=== PATIENT | female | born 1970 | race Caucasian/White ===

== ENCOUNTER → 2017-01-02 | Outpatient (CLI) | payer OTHER ==
[2017-01-02 14:27] LABS: ALT 48 U/L (9-52); AST 25 U/L (14-36); Alkaline Phosphatase 78 U/L (38-126); Anion Gap 13 mmol/L; Blood Urea Nitrogen 11 mg/dL (7-17); Calcium 10.7 mg/dL (8.4-10.2); Carbon Dioxide 30 mmol/L (22-30); Chloride 100 mmol/L (98-107); Glucose 87 mg/dL (74-99); Non-African American GFR(MDRD) >60 (>60 ml/min/1.73 sqM); Potassium 4.5 mmol/L (3.5-5.1); Sodium 143 mmol/L (137-145); Total Bilirubin 0.6 mg/dL (0.2-1.3); Total Protein 8.2 g/dL (6.3-8.2)
== END | disposition home or self-care (01) ==
LOC: LABWHC1 13:47
PROVIDERS: ATTEND Urology
DX: N20.0 Calculus of kidney (principal)
CPT/HCPCS: 36415; 80053

== ENCOUNTER → 2017-06-25 | Outpatient (CLI) | payer OTHER ==
--- NOTE | 2017-06-26 12:57 | MM ---
Reason for exam: screening (asymptomatic). Last mammogram was performed 1 year and 9 months ago. History: Family history of breast cancer in maternal aunt at age 50 and breast cancer in maternal aunt at age 40. Benign MG pre op needle loc RT of the right breast, August 27, 2014. Benign US right core biopsy of the right breast, January 28, 2008. Physical Findings: A clinical breast exam by your physician is recommended on an annual basis and results should be correlated with mammographic findings. MG Screening Mammo w CAD Bilateral CC and MLO view(s) were taken. Prior study comparison: September 12, 2015, bilateral MG 3d diag mammo w/cad [facility]. There are scattered fibroglandular densities. Previous mammotome biopsy within the right breast. No significant changes when compared with prior studies. ASSESSMENT: Benign, BI-RAD 2 RECOMMENDATION: Routine screening mammogram of both breasts in 1 year.
== END | disposition home or self-care (01) ==
LOC: RADMAMWWP 06:57
PROVIDERS: ATTEND Obstetrics & Gynecology
DX: Z12.31 Encounter for screening mammogram for malignant neoplasm of breast (principal)

== ENCOUNTER → 2018-10-08 | Outpatient (CLI) | payer OTHER ==
--- NOTE | 2018-10-09 12:03 | MM ---
Reason for exam: screening (asymptomatic). Last mammogram was performed 1 year and 3 months ago. History: Family history of breast cancer in maternal aunt at age 50 and breast cancer in maternal aunt at age 40. Benign MG pre op needle loc RT of the right breast, August 27, 2014. Benign US right core biopsy of the right breast, January 28, 2008. Physical Findings: A clinical breast exam by your physician is recommended on an annual basis and results should be correlated with mammographic findings. MG Screening Mammo w CAD Bilateral CC and MLO view(s) were taken. Prior study comparison: June 25, 2017, bilateral MG screening mammo w CAD. September 12, 2015, bilateral MG 3d diag mammo w/cad [facility]. There are scattered fibroglandular densities. There are benign appearing stable bilateral masses. Biopsy marker present on the right. No suspicious abnormality. No significant changes when compared with prior studies. ASSESSMENT: Benign, BI-RAD 2 RECOMMENDATION: Routine screening mammogram of both breasts in 1 year.
== END | disposition home or self-care (01) ==
LOC: RADMAMWWP 08:40
PROVIDERS: ATTEND Obstetrics & Gynecology
DX: Z12.31 Encounter for screening mammogram for malignant neoplasm of breast (principal)
CPT/HCPCS: 77067

== ENCOUNTER 2019-04-10 10:43 | Day surgery (SDC) | payer OTHER ==
[2019-04-07 14:32] VITALS: BMI 35.7
[~2019-04-10 10:43] MED LIST: LACTATED RINGERS 1,000 ML IV SCH; LIDOCAINE 1% 20 ML VIAL (10MG/ML) FOR IV START INTRADERMA PRN
[2019-04-10 10:55] VITALS: RESP 16; TEMP 98.4
[2019-04-10] MEDS ORDERED: PROPOFOL 10 MG/ML 20 ML VIAL IV ONE (12:43)
[2019-04-10] MEDS ORDERED: LIDOCAINE 1% INJ 10MG/ML (20 ML MDV) ONE (12:43)
--- NOTE | 2019-04-10 12:47 | P.GSHP ---
History of Present Illness H&P Date: 04/10/19 Chief Complaint: Colon cancer screening Patient here today for screening colonoscopy. She has not had a colonoscopy previously. No bowel complaints. No family history of colon cancer. Past Medical History Past Medical History: Cancer, Hyperlipidemia, Hypertension Additional Past Medical History / Comment(s): kidney stones, squamous cell skin cancer History of Any Multi-Drug Resistant Organisms: None Reported Past Surgical History: Breast Surgery, Section, Tubal Ligation, Uterine Ablation Additional Past Surgical History / Comment(s): UTERINE ABLATION WITH NOVASURE, biopsy of right breast X2 benign, C/S x2 Past Anesthesia/Blood Transfusion Reactions: Family History of Problems w/ Anesthesia Additional Past Anesthesia/Blood Transfusion Reaction / Comment(s): SON GET N & V Smoking Status: Former smoker - Past Family History Father Family Medical History: Cancer Additional Family Medical History / Comment(s): LUNG Medications and Allergies Home Medications Medication Instructions Recorded Confirmed Type Lisinopril [Zestril] 5 mg PO DAILY 11/09/16 04/10/19 History Atorvastatin [Lipitor] 10 mg PO DAILY 04/07/19 04/10/19 History Phentermine HCl [Adipex-P] 37.5 mg PO DAILY 04/07/19 04/10/19 History Allergies Allergy/AdvReac Type Severity Reaction Status Date / Time adhesive tape Allergy Rash/Hives Verified 04/10/19 10:51 Surgical - Exam Vital Signs Temp Pulse Resp BP Pulse Ox 98.4 F 106 H 16 142/77 98 04/10/19 10:54 04/10/19 10:54 04/10/19 10:54 04/10/19 10:54 04/10/19 10:54 Physical exam: General: Well-developed, well-nourished HEENT: Normocephalic, sclerae nonicteric Abdomen: Nontender, nondistended Extremities: No edema Neuro: Alert and oriented Assessment and Plan (1) Colon cancer screening Narrative/Plan: Will proceed with colonoscopy Current Visit: Yes Status: Acute Code(s): Z12.11 - ENCOUNTER FOR SCREENING FOR MALIGNANT NEOPLASM OF COLON SNOMED Code(s): 610699905
--- NOTE | 2019-04-10 13:11 | P.PCN ---
Date of Procedure: 04/10/19 Procedure(s) Performed: PREOPERATIVE DIAGNOSIS: Colon cancer screening POSTOPERATIVE DIAGNOSIS: Ascending colon polyp, diverticulosis PROCEDURE: Colonoscopy with snare polypectomy ANESTHESIA: MAC SURGEON: Golden Hood M.D. SPECIMENS: Ascending colon polyp ENDOSCOPIC PROCEDURE: The patient was placed on the endoscopy table in the left decubitus position. The Olympus colonoscope was inserted into the anus and passed under direct visualization to the base of the cecum. The appendiceal orifice was visualized. From that point the scope was slowly withdrawn inspecting all surfaces carefully. There were no neoplastic inflammatory or polypoid lesions throughout the cecum. In the ascending colon a linear sessile polyp measuring approximately 2 cm was removed in a piecemeal fashion. The remainder of the ascending transverse descending sigmoid and rectum appeared normal. There was mild scattered diverticulosis. Digital rectal examination was normal. The patient was taken to the recovery room in stable condition per anesthesia guidelines. RECOMMENDATIONS: Await biopsies results. Recommend follow colonoscopy 1 year to confirm complete resolution of this polypoid lesion
[2019-04-10 13:38] VITALS: BP 117/80; PULSE 76
== END 2019-04-10 13:51 | disposition home or self-care (01) ==
LOC: ORWHC2ENDO 10:43
PROVIDERS: ATTEND Surgery
DX: Z12.11 Encounter for screening for malignant neoplasm of colon (principal); E78.5 Hyperlipidemia, unspecified; I10 Essential (primary) hypertension; Z85.828 Personal history of other malignant neoplasm of skin; Z87.442 Personal history of urinary calculi; Z87.891 Personal history of nicotine dependence; Z80.1 Family history of malignant neoplasm of trachea, bronchus and lung; D12.2 Benign neoplasm of ascending colon; K57.30 Diverticulosis of large intestine without perforation or abscess without bleeding; Z88.8 Allergy status to other drugs, medicaments and biological substances; Z79.899 Other long term (current) drug therapy
CPT/HCPCS: 88305; 45385; J2001; J2704

== ENCOUNTER → 2019-11-24 | Outpatient (CLI) | payer OTHER ==
--- NOTE | 2019-11-26 13:22 | MM ---
Reason for exam: screening (asymptomatic). Last mammogram was performed 1 year and 2 months ago. History: Patient history of other cancer. Family history of breast cancer in maternal aunt at age 50 and breast cancer in maternal aunt at age 40. Benign MG pre op needle loc RT of the right breast, August 27, 2014. Benign US right core biopsy of the right breast, January 28, 2008. Took hormonal contraceptives for 5 years. Physical Findings: A clinical breast exam by your physician is recommended on an annual basis and results should be correlated with mammographic findings. MG Screening Mammo w CAD Bilateral CC and MLO view(s) were taken. Prior study comparison: October 08, 2018, bilateral MG screening mammo w CAD. June 25, 2017, bilateral MG screening mammo w CAD. There are scattered fibroglandular densities. There are benign appearing stable bilateral round oval circumscribed masses. No suspicious abnormality. Right biopsy marker noted. No significant changes when compared with prior studies. ASSESSMENT: Benign, BI-RAD 2 RECOMMENDATION: Routine screening mammogram of both breasts in 1 year.
== END | disposition home or self-care (01) ==
LOC: RADMAMWWP 06:58
PROVIDERS: ATTEND Obstetrics & Gynecology
DX: Z12.31 Encounter for screening mammogram for malignant neoplasm of breast (principal)
CPT/HCPCS: 77067

== ENCOUNTER → 2021-03-17 | Outpatient (CLI) | payer OTHER ==
--- NOTE | 2021-03-20 11:50 | MM ---
Reason for exam: screening (asymptomatic). Last mammogram was performed 1 year and 4 months ago. History: Patient history of other cancer. Family history of breast cancer in maternal aunt at age 50, breast cancer in maternal aunt at age 40, and breast cancer in sister at age 45. Benign MG pre op needle loc RT of the right breast, August 27, 2014. Benign US right core biopsy of the right breast, January 28, 2008. Took hormonal contraceptives for 5 years. Physical Findings: A clinical breast exam by your physician is recommended on an annual basis and results should be correlated with mammographic findings. MG Screening Mammo w CAD Bilateral CC and MLO view(s) were taken. Prior study comparison: November 24, 2019, bilateral MG screening mammo w CAD. October 08, 2018, bilateral MG screening mammo w CAD. There are scattered fibroglandular densities. Previous mammotome biopsy in the right breast at chronic nodularity. There is chronic nodularity bilaterally. There is no discrete abnormality. ASSESSMENT: Benign, BI-RAD 2 RECOMMENDATION: Routine screening mammogram of both breasts in 1 year.
== END | disposition home or self-care (01) ==
LOC: RADMAMWWP 07:18
PROVIDERS: ATTEND Obstetrics & Gynecology
DX: Z12.31 Encounter for screening mammogram for malignant neoplasm of breast (principal); Z80.3 Family history of malignant neoplasm of breast
CPT/HCPCS: 77067

== ENCOUNTER → 2022-06-05 | Outpatient (CLI) | payer OTHER ==
--- NOTE | 2022-06-07 10:28 | MM ---
Reason for Exam: Screening (asymptomatic). Last mammogram was performed 1 year(s) and 3 month(s) ago. Patient History: Menarche at age 11. First Full-Term at age 19. Postmenopausal. Other cancer. Patient used Hormonal Contraceptives for 5 years. 08/27/2014, Benign Core Biopsy on the right side. 01/28/2008, Benign Core Biopsy on the right side. Maternal aunt had breast cancer, age 50. Maternal aunt had breast cancer, age 40. Sister had breast cancer, age 45. Risk Values: Shruthi 5 year model risk: 3.1%. NCI Lifetime model risk: 22.5%. Prior Study Comparison: 10/08/2018 Bilateral Screening Mammogram, [facility]. 11/24/2019 Bilateral Screening Mammogram, [facility]. 03/17/2021 Bilateral Screening Mammogram, [facility]. Tissue Density: The breast tissue is almost entirely fat. Findings: Analyzed By CAD. Asymmetry seen on MLO view only within the right breast. There is no suspicious group of microcalcifications or new suspicious mass in either breast. Biopsy marker is seen within the right breast lateral upper quadrant. Overall Assessment: Incomplete: need additional imaging evaluation, BI-RAD 0 Management: Special View Mammogram of the right breast. A clinical breast exam by your physician is recommended on an annual basis and results should be correlated with mammographic findings. Electronically signed and approved by: Bishnu Correa DO
== END | disposition home or self-care (01) ==
LOC: RADBDWWP 07:06
PROVIDERS: ATTEND Obstetrics & Gynecology
DX: Z12.31 Encounter for screening mammogram for malignant neoplasm of breast (principal); Z78.0 Asymptomatic menopausal state; Z80.3 Family history of malignant neoplasm of breast
CPT/HCPCS: 77067

== ENCOUNTER → 2022-06-07 | Outpatient (CLI) | payer OTHER ==
--- NOTE | 2022-06-07 08:20 | BD ---
EXAMINATION TYPE: Axial Bone Density DATE OF EXAM: 06/07/2022 COMPARISON: NONE CLINICAL HISTORY: 51 years year old Female. ICD-10 CODE: N95.1 MENOPAUSAL AND FEMALE CLIMACTERIC STA LOS Height: 59.5 Weight: 192 FRAX RISK QUESTIONS: Alcohol (3 or more units per day): NO Family History (Parent hip fracture): NO Glucocorticoids (More than 3mos): NO History of Fracture in Adulthood: NO Secondary Osteoporosis: 1. Type 1 Diabetes: NO 2. Hyperthyroidism: NO 3. Menopause before 45: NO 4. Malnutrition: NO 5. Chronic liver disease: NO Rheumatoid Arthritis: NO Current Tobacco Use: NO RISK FACTORS HISTORY OF: Hip Fracture (Right/Left): NO Spine Fracture: NO History of Wrist Fracture: NO Surgery to Spine/Hip(right/left)/Wrist (right/left): NO Family History of Osteoporosis: NO Active: NO Diet low in dairy products/other sources of calcium: YES Postmenopausal woman: YES Lost more than 2 inches in height since high school: NO Frequent falls: NO Poor Health: NO Hyperparathyroidism: NO Adrenal Insufficiency: NO MEDICATIONS: Prednisone or other steroids: NO Thyroid Medications:NO Osteoporosis Medications:NO Additional Medications: BP MEDS, CHOLESTEROL MEDS, EXAM MEASUREMENTS: Bone mineral densitometry was performed using the [employer] System. Bone mineral density as measured about the Lumbar spine is: ----- L1-L4(G/cm2): 0.873 T Score Values are as follows: ----- L1: -2.6 ----- L2: -3.1 ----- L3: -2.2 ----- L4: -2.6 ----- L1-L4: -2.6 BASELINE STUDY Bone mineral density about the R hip (g/cm2): 0.898 Bone mineral density about the L hip (g/cm2): 0.833 T Score values are as follows: -----R Neck: -1.0 -----L Neck: -1.5 -----R Total: -0.3 -----L Total: -0.8 BASELINE STUDY FRAX%s: The graph provided illustrates a 5.6% chance for a major osteoporotic fx and a 0.4% chance fo r the hips probability for fx in 10 years time. IMPRESSION: Osteoporosis (T Score less than -2.5). There is increased fracture risk and therapy is usually indicated based on age. Re-Screen 1-2 years. NOTE: T-SCORE=SD OF THE YOUNG ADULT MEAN.
== END | disposition home or self-care (01) ==
LOC: RADBDWWP 07:16
PROVIDERS: ATTEND Obstetrics & Gynecology
DX: M81.0 Age-related osteoporosis without current pathological fracture (principal)
CPT/HCPCS: 77080

== ENCOUNTER → 2022-06-07 | Outpatient (CLI) | payer OTHER ==
--- NOTE | 2022-06-08 14:05 | MM ---
Reason for Exam: Additional evaluation requested from abnormal screening. Last screening mammogram was performed less than 1 month ago. Patient History: Menarche at age 11. First Full-Term at age 19. Postmenopausal. Other cancer. Patient used Hormonal Contraceptives for 5 years. 08/27/2014, Benign Core Biopsy on the right side. 01/28/2008, Benign Core Biopsy on the right side. Maternal aunt had breast cancer, age 50. Maternal aunt had breast cancer, age 40. Sister had breast cancer, age 45. Risk Values: Shruthi 5 year model risk: 3.1%. NCI Lifetime model risk: 22.5%. Prior Study Comparison: 11/24/2019 Bilateral Screening Mammogram, [facility]. 03/17/2021 Bilateral Screening Mammogram, [facility]. 06/05/2022 Bilateral MG screening mammo w CAD, [facility]. Tissue Density: Right: There are scattered fibroglandular densities. Findings: Analyzed By CAD. Area of distortion is improved on spot compression imaging. Overall Assessment: Probably benign, BI-RAD 3 Management: Diagnostic Mammogram of the right breast in 6 months. A clinical breast exam by your physician is recommended on an annual basis and results should be correlated with mammographic findings. This exam should not preclude additional follow-up of suspicious palpable abnormalities. Results were given to the patient verbally at the time of exam. Electronically signed and approved by: Jose Johnson M.D. Radiologis
== END | disposition home or self-care (01) ==
LOC: RADMAMWWP 07:14
PROVIDERS: ATTEND Obstetrics & Gynecology
DX: R92.8 Other abnormal and inconclusive findings on diagnostic imaging of breast (principal); Z78.0 Asymptomatic menopausal state; Z80.3 Family history of malignant neoplasm of breast
CPT/HCPCS: 77065

== ENCOUNTER → 2022-12-13 | Outpatient (CLI) | payer OTHER ==
--- NOTE | 2022-12-13 07:39 | MM ---
Reason for Exam: Follow-up at short interval from prior study. Last screening mammogram was performed 6 month(s) ago. Patient History: Menarche at age 11. First Full-Term at age 19. Postmenopausal. Other cancer. Patient used Hormonal Contraceptives for 5 years. 08/27/2014, Benign Core Biopsy on the right side. 01/28/2008, Benign Core Biopsy on the right side. Maternal aunt had breast cancer, age 50. Maternal aunt had breast cancer, age 40. Sister had breast cancer, age 45. Risk Values: Shruthi 5 year model risk: 3.3%. NCI Lifetime model risk: 22.1%. Prior Study Comparison: 06/25/2017 Bilateral Screening Mammogram, [facility]. 10/08/2018 Bilateral Screening Mammogram, [facility]. 11/24/2019 Bilateral Screening Mammogram, [facility]. 03/17/2021 Bilateral Screening Mammogram, [facility]. 06/05/2022 Bilateral MG screening mammo w CAD, [facility]. 06/07/2022 Right MG work up mamm w CAD RT, [facility]. Tissue Density: Right: There are scattered fibroglandular densities. Findings: Analyzed By CAD. Pattern appears stable. A core markers within the right breast. Densities within the right breast appear stable. No significant interval change. No suspicious groups of microcalcifications, spiculated or lobular masses, architectural distortion or other secondary signs of malignancy are mammographically apparent. Overall Assessment: Benign, BI-RAD 2 Management: Screening Mammogram of both breasts in 6 months. A negative mammogram report should not preclude additional follow up of suspicious palpable abnormalities. Patient should continue monthly self breast exam. A clinical breast exam by your physician is recommended on an annual basis and results should be correlated with mammographic findings. Electronically signed and approved by: Vick Marquis D.O. Radiologis
== END | disposition home or self-care (01) ==
LOC: RADMAMWWP 07:03
PROVIDERS: ATTEND Obstetrics & Gynecology
DX: R92.8 Other abnormal and inconclusive findings on diagnostic imaging of breast (principal); Z78.0 Asymptomatic menopausal state; Z80.3 Family history of malignant neoplasm of breast
CPT/HCPCS: 77061; 77065

== ENCOUNTER → 2023-07-18 | Outpatient (CLI) | payer OTHER ==
--- NOTE | 2023-07-19 10:11 | MM ---
Reason for Exam: Screening (asymptomatic). Last mammogram was performed 1 year(s) and 1 month(s) ago. Patient History: Menarche at age 11. First Full-Term at age 19. Postmenopausal. Other cancer. Patient used Hormonal Contraceptives for 5 years. 08/27/2014, Benign Core Biopsy on the right side. 01/28/2008, Benign Core Biopsy on the right side. Maternal aunt had breast cancer, age 50. Maternal aunt had breast cancer, age 40. Sister had breast cancer, age 45. Risk Values: Shruthi 5 year model risk: 3.4%. NCI Lifetime model risk: 21.8%. Prior Study Comparison: 06/05/2022 Bilateral MG screening mammo w CAD, [facility]. 06/07/2022 Right MG work up mamm w CAD RT, [facility]. 12/13/2022 Right MG 3D diag mammo w/cad RT, [facility]. Tissue Density: The breast tissue is almost entirely fat. Findings: Analyzed By CAD. Right breast biopsy clip There is no suspicious group of microcalcifications or new suspicious mass in either breast. Overall Assessment: Benign, BI-RAD 2 Management: Screening Mammogram of both breasts in [address] [facility] will attempt to contact patient to return for supplemental views and ultrasound if indicated. Patient should continue monthly self-breast exams. A clinical breast exam by your physician is recommended on an annual basis. This exam should not preclude additional follow-up of suspicious palpable abnormalities. Note on Shruthi scores and lifetime risk: 1. A Shruthi score greater than 3% is considered moderate risk. If this is the case, consider specialist referral to assess eligibility for a risk reducing agent. 2. If overall lifetime risk for the development of breast cancer is 20% or higher, the patient may qualify for future screening with alternating mammogram and breast MRI. Electronically signed and approved by: Bishnu Correa DO
== END | disposition home or self-care (01) ==
LOC: RADMAMWWP 07:44
PROVIDERS: ATTEND Obstetrics & Gynecology
DX: Z12.31 Encounter for screening mammogram for malignant neoplasm of breast (principal); Z78.0 Asymptomatic menopausal state; Z80.3 Family history of malignant neoplasm of breast
CPT/HCPCS: 77063; 77067

== ENCOUNTER → 2024-02-04 | Outpatient (CLI) | payer OTHER ==
[2024-02-04 16:31] LABS: Basophils # (A) 0.02 X 10*3/uL (0.00-0.10); Basophils % (A) 0.3 %; Eosinophils # (A) 0.08 X 10*3/uL (0.04-0.35); Eosinophils % (A) 1.2 %; HCT 46.2 % (37.2-46.3); HGB 14.9 g/dL (12.0-15.0); Lymphocytes # (A) 2.16 X 10*3/uL (0.90-5.00); Lymphocytes % (A) 32.2 %; MCH 29.1 pg (27.0-32.0); MCHC 32.3 g/dL (32.0-37.0); MCV 90.2 FL (80.0-97.0); Mean Platelet Volume 10.2 FL (9.5-12.2); Monocytes % (A) 7.5 %; NRBC Per 100 WBC 0 X 10*3/uL (0.00-0.01); Neutrophils # (A) 3.91 X 10*3/uL (1.80-7.70); Neutrophils % (A) 58.4 %; Platelet Count 336 X 10*3/uL (140-440); RBC 5.12 X 10*6/uL (4.10-5.20); RDW 13.8 % (11.5-14.5)
[2024-02-04 16:41] LABS: ALT 33 U/L (8-44); AST 24 U/L (13-35); Albumin 4.7 g/dL (3.8-4.9); Albumin/Globulin Ratio 1.81 Ratio (1.60-3.17); Alkaline Phosphatase 108 U/L (41-126); BUN/Creat Ratio 19.11 Ratio (12.00-20.00); Blood Urea Nitrogen 17.2 mg/dL (9.0-27.0); Calcium 10.1 mg/dL (8.7-10.3); Carbon Dioxide 25.7 mmol/L (21.6-31.8); Chloride 105 mmol/L (96-109); Chol/HDL Ratio 3.12 Ratio; Globulin 2.6 g/dL (1.6-3.3); Glucose 104 mg/dL (70-110); LDL Cholesterol,Calculated 100.7 mg/dL (0.0-131.0); Potassium 4.6 mmol/L (3.5-5.5); Sodium 140 mmol/L (135-145); Total Bilirubin 0.5 mg/dL (0.3-1.2); Total Protein 7.3 g/dL (6.2-8.2)
== END | disposition home or self-care (01) ==
LOC: LABWHC1 08:41
PROVIDERS: ATTEND Family Medicine
DX: I10 Essential (primary) hypertension (principal); E78.00 Pure hypercholesterolemia, unspecified; E66.01 Morbid (severe) obesity due to excess calories; Z71.82 Exercise counseling; Z71.3 Dietary counseling and surveillance; Z68.41 Body mass index [BMI] 40.0-44.9, adult
CPT/HCPCS: 36415; 80053; 80061; 84443; 85025

== ENCOUNTER → 2024-10-06 | Outpatient (CLI) | payer OTHER ==
--- NOTE | 2024-10-11 17:25 | MM ---
Reason for Exam: Screening (asymptomatic). Last mammogram was performed 1 year(s) and 3 month(s) ago. Patient History: Menarche at age 11. First Full-Term at age 19. Postmenopausal. Other cancer. Patient used Hormonal Contraceptives for 5 years. 08/27/2014, Benign Core Biopsy on the right side. 01/28/2008, Benign Core Biopsy on the right side. Maternal aunt had breast cancer, age 50. Maternal aunt had breast cancer, age 40. Sister had breast cancer, age 45. Risk Values: Shruthi 5 year model risk: 3.5%. NCI Lifetime model risk: 21.4%. Prior Study Comparison: 06/07/2022 Right MG work up mamm w CAD RT, [facility]. 12/13/2022 Right MG 3D diag mammo w/cad RT, [facility]. 07/18/2023 Bilateral MG 3D screening mammo w/cad, [facility]. Tissue Density: There are scattered areas of fibroglandular density. Findings: Analyzed By CAD. The pattern is symmetrical. No significant interval change No suspicious groups of microcalcifications, spiculated or lobular masses, architectural distortion or other secondary signs of malignancy are mammographically apparent. Overall Assessment: Benign, BI-RAD 2 Management: Screening Mammogram of both breasts in 1 year. A negative mammogram report should not preclude additional follow up of suspicious palpable abnormalities. Patient should continue monthly self breast exam. A clinical breast exam by your physician is recommended on an annual basis and results should be correlated with mammographic findings. Note on Shruthi scores and lifetime risk: 1. A Shruthi score greater than 3% is considered moderate risk. If this is the case, consider specialist referral to assess eligibility for a risk reducing agent. 2. If overall lifetime risk for the development of breast cancer is 20% or higher, the patient may qualify for future screening with alternating mammogram and breast MRI. [facility], , 10/11/2024 5:22 PM. Electronically signed and approved by: Vick Marquis D.O. Radiologis
== END | disposition home or self-care (01) ==
LOC: RADMAMWWP 07:38
PROVIDERS: ATTEND Family Medicine
DX: Z12.31 Encounter for screening mammogram for malignant neoplasm of breast (principal); R92.323 Mammographic fibroglandular density, bilateral breasts; Z78.0 Asymptomatic menopausal state; Z80.3 Family history of malignant neoplasm of breast
CPT/HCPCS: 77063; 77067

== ENCOUNTER → 2025-02-27 | Outpatient (CLI) | payer OTHER ==
[2025-02-27 13:50] LABS: ALT 31 U/L (8-44); AST 23 U/L (13-35); Albumin 4.3 g/dL (3.8-4.9); Albumin/Globulin Ratio 1.79 Ratio (1.60-3.17); Alkaline Phosphatase 113 U/L (41-126); BUN/Creat Ratio 11.62 Ratio (12.00-20.00); Blood Urea Nitrogen 9.3 mg/dL (9.0-27.0); Calcium 9.8 mg/dL (8.7-10.3); Chloride 104 mmol/L (96-109); Globulin 2.4 g/dL (1.6-3.3); Glucose 94 mg/dL (70-110); Microalbumin Creatinine Ratio <11 mg/g Cr (0-30); Potassium 4.2 mmol/L (3.5-5.5); Sodium 142 mmol/L (135-145); Total Bilirubin 0.6 mg/dL (0.3-1.2); Total Protein 6.7 g/dL (6.2-8.2)
== END | disposition home or self-care (01) ==
LOC: LABWHC1 09:41
PROVIDERS: ATTEND Family Medicine
DX: E11.69 Type 2 diabetes mellitus with other specified complication (principal)
CPT/HCPCS: 36415; 80053; 82043; 82570

== ENCOUNTER → 2025-05-25 | Outpatient (CLI) | payer OTHER ==
[2025-05-25 09:14] VITALS: BP 121/83; PULSE 93; RESP 16; TEMP 97.8
--- NOTE | 2025-05-25 09:50 | P.HPOB ---
History of Present Illness H&P Date: 05/25/25 Chief Complaint: The patient is here for her routine gynecologic exam. This is a 54-year-old G2, P2 with an LMP of 2004. The patient is here to establish with this office. She previously saw Dr. Powell for her gynecologic care and last saw him about 1 year ago. She has had hot flashes on and off since about 2020. She is otherwise without gynecologic complaints and denies any postmenopausal bleeding. She is status post endometrial ablation in 2004 and has been amenorrheic since then. Review of Systems She had gained about 20 pounds in the past year, but during the past 3 months she has lost 20 pounds using dietary changes. She denies respiratory, cardiac, or GI problems. Past Medical History Past Medical History: Cancer, Hyperlipidemia, Hypertension Additional Past Medical History / Comment(s): kidney stones, squamous cell skin cancer. PAST MANAGER CAREER HISTORY: She has no history of STDs. History of Any Multi-Drug Resistant Organisms: None Reported Past Surgical History: Breast Surgery, Section, Tubal Ligation, Uterine Ablation Additional Past Surgical History / Comment(s): UTERINE ABLATION WITH NOVASURE, biopsy of right breast X2 benign, C/S x2. Kidney stone surgery. Surgery to remove scar endometriosis. 2 right breast biopsies which were benign. Colonoscopy 2021(next after 5yr). Past Anesthesia/Blood Transfusion Reactions: Family History of Problems w/ Anesthesia Additional Past Anesthesia/Blood Transfusion Reaction / Comment(s): SON GET N & V Past Psychological History: No Psychological Hx Reported Smoking Status: Former smoker Past Alcohol Use History: Occasional (4 drinks per month.) Additional Past Alcohol Use History / Comment(s): smoker for 10-14 years 1/2- 1ppd quit 2018 Past Drug Use History: None Reported Additional History: She has been since 1986. 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 - Past Family History Father Family Medical History: Cancer Additional Family Medical History / Comment(s): LUNG cancer. . Mother Family Medical History: Diabetes Mellitus, Hypertension Additional Family Medical History / Comment(s): 2 maternal aunts had breast cancer. Sister(s) Family Medical History: Cancer Additional Family Medical History / Comment(s): Breast cancer. Medications and Allergies Home Medications Medication Instructions Recorded Confirmed Type lisinopriL [Zestril] 5 mg PO QAM 12/16/16 07/01/25 History Atorvastatin [Lipitor] 40 mg PO HS 04/07/19 05/25/25 History Allergies Allergy/AdvReac Type Severity Reaction Status Date / Time adhesive tape Allergy Rash/Hives Verified 05/25/25 08:29 Exam Vital Signs Temp Pulse Resp BP Pulse Ox 05/25/25 08:29 97.8 F 93 16 121/83 97 Intake and Output 05/24/25 05/25/25 05/25/25 22:59 06:59 14:59 Other: Weight 86.636 kg Height 4 feet 11 inches, weight 191 pounds, BMI 38.6. This is a well-developed well-nourished heavyset white female who is alert and oriented times 3 in no acute distress. HEENT: Within normal limits. NECK: Supple without mass or thyromegaly. CHEST AND LUNGS: Clear to auscultation. HEART: Regular rate and rhythm. BREASTS: Are without mass or discharge. There is a birthmark at the 5 o'clock position of the right breast measuring 13 x 13 mm which she states she has had all her life and has not changed. AXILLARY EXAM: Negative for adenopathy. BACK: Negative for CVA tenderness. ABDOMEN: Soft, nontender, without palpable masses. PELVIC EXAM: Normal external genitalia with mild atrophy. Cervix and vagina appear normal with mild atrophy. There is no unusual discharge. There is no evidence of prolapse. The uterus is midposition, nongravid size and nontender. There are no palpable adnexal masses or tenderness. RECTAL EXAM: Refused by the patient. EXTREMITIES: Nontender. Additional studies: Bone density test done on 06/07/2022 showed osteoporosis. This was a baseline study. Her last mammogram was done on 10/06/2024 and was benign. IMPRESSION: 1. 58-year-old menopausal female with normal gynecologic exam. 2. Family history of breast cancer in a sister and 2 maternal aunts. 3. History of osteoporosis. PLAN: 1. Pap smear cotest was performed. 2. Self breast awareness was discussed with the patient. We have also discussed symptoms associated with inflammatory breast cancer. 3. Screening mammogram will be due in September and the order slip was given to the patient for this. 4. Osteoporosis management was discussed. I have stressed the importance of adequate calcium, vitamin D and regular exercise. Recommended amounts of calcium and vitamin D were also discussed. Information on osteoporosis and Fosamax were given to the patient. I am going to have her repeat the bone density test and will be talking further about medication for osteoporosis after we get the results back. The order slip was given to the patient for this. 5. We have discussed her family history of breast cancer. We have discussed the option of cancer genetic counseling and testing. We have discussed some pros and cons of this type of testing. She would like to think about this and will let me know if she is interested in pursuing this. 6. She was advised to return in one year for her annual well woman exam.
== END ==
LOC: WWCWWP 08:02
PROVIDERS: ATTEND Obstetrics & Gynecology
DX: Z01.419 Encounter for gynecological examination (general) (routine) without abnormal findings (principal); Z78.0 Asymptomatic menopausal state; Z80.3 Family history of malignant neoplasm of breast; Z82.62 Family history of osteoporosis; Z91.048 Other nonmedicinal substance allergy status; Z87.891 Personal history of nicotine dependence

== ENCOUNTER → 2025-06-24 | Outpatient (CLI) | payer OTHER ==
--- NOTE | 2025-06-24 19:48 | BD ---
EXAMINATION TYPE: Axial Bone Density DATE OF EXAM: 06/24/2025 CLINICAL HISTORY: 54 years old Female. ICD-10 CODE: Z78.0 POSTMENOPAUSAL STATE , Additional History: Height: 59 Weight: 193.3 FRAX RISK QUESTIONS: Alcohol (3 or more units per day): no Family History (Parent hip fracture): no Glucocorticoids (More than 3mos): no (Ex: prednisone, prednisolone, methylprednisolone, dexamethasone, and hydrocortisone). History of Fracture in Adulthood: foot Secondary Osteoporosis: 1. Type 1 Diabetes: no 2. Hyperthyroidism: no 3. Menopause before 45: no 4. Malnutrition: no 5. Chronic liver disease: no Rheumatoid Arthritis: no Current Tobacco Use: no RISK FACTORS HISTORY OF: Hip Fracture (Right/Left): no Spine Fracture: no History of Wrist Fracture: no Surgery to Spine/Hip(right/left)/Wrist (right/left): no MEDICATIONS: Thyroid Medications: no Osteoporosis Medications: no EXAM MEASUREMENTS: Bone mineral densitometry was performed using the [employer]. Bone mineral density as measured about the Lumbar spine is: ----- L1-L4(G/cm2): 0.944 T Score Values are as follows: ----- L1: -1.9 ----- L2: -1.6 ----- L3: -2.1 ----- L4: -2.4 ----- L1-L4: -2.0 Z Score Values are as follows: ----- L1: -1.7 ----- L2: -1.4 ----- L3: -1.9 ----- L4: -2.2 ----- L1-L4: -1.8 Bone mineral density has: increased 8.1 % since study of: 06/07/2022 Bone mineral density about the R hip (g/cm2): 0.949 Bone mineral density about the L hip (g/cm2): 0.923 T Score values are as follows: -----R Neck: -1.5 -----L Neck: -1.8 -----R Total: -0.5 -----L Total: -0.7 Z Score values are as follows: -----R Neck: -0.9 -----L Neck: -1.2 -----R Total: -0.3 -----L Total: -0.5 Bone mineral density has: decreased -0.4 % since study of: 06/07/2022 FRAX%s: The graph provided illustrates a 7.2% chance for a major osteoporotic fx and a 0.7% chance fo r the hips probability for fx in 10 years time. IMPRESSION: Osteopenia (T Score between -2.5 and -1). There is slightly increased risk of fracture and the patient may be considered for treatment. Re-Screen 2-5 years. NOTE: T-SCORE=SD OF THE YOUNG ADULT MEAN. [facility], , 06/24/2025 7:46 PM
== END | disposition home or self-care (01) ==
LOC: RADBDWWP 08:41
PROVIDERS: ATTEND Obstetrics & Gynecology
DX: M85.89 Other specified disorders of bone density and structure, multiple sites (principal); Z78.0 Asymptomatic menopausal state
CPT/HCPCS: 77080